=== PATIENT | female | born 1980 | race Caucasian/White ===

== ENCOUNTER 2016-03-15 07:58 | Day surgery (SDC) | payer OTHER ==
[2016-03-12 11:12] VITALS: BMI 29.2
[2016-03-15] MEDS ORDERED: PROMETHAZINE HCL 25 MG/1 ML VIAL IVPUSH PRN (08:45)
[2016-03-15] MEDS ORDERED: LACTATED RINGERS SOLUTION 1,000 ML IV SCH (08:45)
[2016-03-15] MEDS ORDERED: ONDANSETRON 4 MG/2 ML VIAL IVPUSH PRN (08:45)
[2016-03-15] MEDS ORDERED: MIDAZOLAM HCL 2 MG/2 ML SINGLE DOSE VIAL ONE (08:59)
[2016-03-15] MEDS ORDERED: PROPOFOL 20 ML ONE (08:59)
[2016-03-15] MEDS ORDERED: ROCURONIUM BROMIDE 50 MG/5 ML VIAL ONE (08:59)
--- NOTE | 2016-03-15 09:33 | HP ---
Past Medical History - Primary Care Physician PCP:: Augustine Weller - Admission Chief Complaint: Sterilization History of Present Illness: 35 yp [id number] admitted for laparoscopic BTL. 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: Alzheimer's, CVA, Dementia, Migraine, Multiple Sclerosis, Peripheral Neuropathy, Parkinson's, Seizure, Syncope, TIA, Vertigo, Other Cardiovascular: No: AFIB, Aneurysm, Aortic Insufficiency, Aortic Stenosis, CAD, CHF, Deep Vein Thrombosis, HTN, Hyperlipdemia, NC, Mitral Insufficiency, Mitral Stenosis, Murmur, Pulmonary Hypertension, Other Pulmonary: Yes: Asthma Gastrointestinal: No: Ascites, Cancer, Constipation, Crohn's Disease, Diverticulitis, Diverticulosis, Esophageal Varices, Gastritis, GERD, GI Bleed, Hemorrhoids, Hiatal Hernia, Inflamatory Bowel Disease, Irritable Bowel Disease, Pancreatitis, Peptic Ulcer Disease, Ulcerative Colitis, Other Hepatobiliary: No: Cirrhosis, Cholelithiasis, Cholecystitis, Choledocholithiasis , Hepatitis A, Hepatitis B, Hepatitis C, Other Renal/: No: Renal Failure, Renal Inusuff, BPH, Cancer, Hematuria, Hemodialysis , Neurogenic Bladder, Renal Calculi, UTI, Other ...: 4 ...Para: 3 ...Term: 3 ...Induced : 1 Heme/Onc: Yes: Anemia Infectious Disease: Yes: STD's (h/o PID, HPV) Psych: No: Addictions, Anxiety, Bipolar, Depression, Panic, Psychosis, Schizophrenia, Other Musculoskeletal: No: Bursitis, Chronic low back pain, Hemiparesis, Hemiplegia, Osteoarthritis, Paraplegia, Other Rheumatology: Yes: Fibromyalgia ENT: No: Allergic Rhinitis, Sinusitis, Other Endocrine: No: Gonzales's Disease, Kelby's Disease, Diabetes Insipidus, Diabetes Mellitus, Hyperparathyroidism, Hyperthyroidism, Hypothyroidism, Osteopenia, SIADH, Other Dermatology: No: Basal Cell, Cellulitis, Eczema, Melanoma, Psoriasis, Squamous Cell, Other - Past Surgical History Hx Myomectomy: No Hx Transabdominal Cerclage: No Additional Surgical History: Laparoscopic lysis of adhesions, LEEP - Smoking History Smoking history: Former smoker Have you smoked in the past 12 months: No If you are a former smoker, when did you quit?: 2007 - Alcohol/Substance Use Hx Alcohol Use: Yes (SOCIAL) History of Substance Use: reports: None - Social History ADL: Independent History of Recent Travel: No Home Medications - Allergies Allergies/Adverse Reactions: Allergies Allergy/AdvReac Type Severity Reaction Status Date / Time acetaminophen [From Tylenol] Allergy Severe Vomiting Verified 03/15/16 08:30 codeine [Codeine] Allergy Severe Itching Verified 03/15/16 08:30 oxycodone HCl [From Percocet] Allergy Severe Itching Verified 03/15/16 08:30 hydrocodone bitartrate AdvReac Verified 03/15/16 08:30 [From Vicodin] - Home Medications Home Medications: Ambulatory Orders Albuterol Sulfate Inhaler - [Ventolin HFA Inhaler -] 2 puff PO PRN PRN 08/26/15 Ibuprofen [Advil -] 400 mg PO PRN PRN 03/15/16 Family Disease History - Family Disease History Family History: Unremarkable Review of Systems Findings/Remarks: Well appearing - Review of Systems Constitutional: reports: No Symptoms Eyes: reports: No Symptoms HENT: reports: No Symptoms Neck: reports: No Symptoms Cardiovascular: reports: No Symptoms Respiratory: reports: No Symptoms Gastrointestinal: reports: No Symptoms Genitourinary: reports: No Symptoms Breasts: reports: No Symptoms Reported Musculoskeletal: reports: No Symptoms Integumentary: reports: No Symptoms Neurological: reports: No Symptoms Endocrine: reports: No Symptoms Hematology/Lymphatic: reports: No Symptoms Psychiatric: reports: No Symptoms Pain Intensity: 0 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 Vital Signs: Vital Signs Temperature 98.2 F 03/15/16 08:28 Pulse Rate 83 03/15/16 08:28 Respiratory Rate 20 03/12/16 11:07 Blood Pressure 113/71 03/15/16 08:28 O2 Sat by Pulse Oximetry (%) 98 03/15/16 08:28 Constitutional: Yes: Well Nourished, No Distress, Calm Eyes: Yes: WNL, Conjunctiva Clear HENT: Yes: WNL, Atraumatic, Normocephalic Neck: Yes: WNL, Supple, Trachea Midline Cardiovascular: Yes: WNL, Regular Rate and Rhythm Respiratory: Yes: WNL, Regular, CTA Bilaterally Gastrointestinal: Yes: WNL, Normal Bowel Sounds, Soft ...Rectal Exam: Yes: WNL Renal/: Yes: WNL Pelvis: Yes: WNL External Genitalia: Yes: Normal Internal Exam Deferred: No Vaginal Exam: Yes: Normal Cervix: Yes: Normal Uterus: Yes: Normal, Freely Moveable Musculoskeletal: Yes: WNL Extremities: Yes: WNL Edema: No Integumentary: Yes: WNL Neurological: Yes: WNL, Alert, Oriented ...Motor Strength: WNL Psychiatric: Yes: WNL, Alert, Oriented Assessment/Plan 35 yo P3 admitted for laparoscopic BTL. We had a long discussion about the risks , benefits, and alternatives of surgery. The risks of infection, bleeding, failed sterilization, pain, scarring, need for additional surgery, etc. explained. The pt verbalized her understanding.
[2016-03-15] MEDS ORDERED: ceFAZolin SODIUM 1 GM VIAL IVPB ONE (09:40)
[2016-03-15] MEDS ORDERED: BUPIVACAINE HCL/PF 0.5% (5MG/ML) 10 ML VIAL ONE (09:46)
[2016-03-15] MEDS ORDERED: BUPIVACAINE HCL/PF 0.5% (5MG/ML) 10 ML VIAL IJ ONE (10:15)
[2016-03-15] MEDS ORDERED: IBUPROFEN 600 MG TABLET (FP) PO PRN (10:59)
[2016-03-15 12:17] VITALS: TEMP 98.8
[2016-03-15] MEDS ORDERED: IBUPROFEN 600 MG TABLET (FP) PO ONE (13:51)
[2016-03-15 15:26] VITALS: BP 115/71; PULSE 69
--- NOTE | 2016-03-16 13:48 | OP ---
DATE OF OPERATION: 03/15/2016 PREOPERATIVE DIAGNOSIS: Sterilization. POSTOPERATIVE DIAGNOSIS: Sterilization. PROCEDURE: Laparoscopic bilateral tubal ligation via fulguration. SURGEON: Feroz Rosales MD REJECTOR: None. ANESTHESIOLOGIST: Bessie Edouard MD ANESTHESIA: General. COMPLICATIONS: None. ESTIMATED BLOOD LOSS: 3 mL. INTRAVENOUS FLUIDS: 1000 mL of crystalloids. URINE OUTPUT: 100 mL of clear fluid at the end of the procedure. FINDINGS: Normal uterus, fallopian tubes, and ovaries. Normal visualized fragments of small and large intestine. Normal liver, gallbladder, and stomach as visualized during laparoscopy. No pathology was noted. PROCEDURE: The patient was met preoperatively. Risks, benefits, and alternatives of surgery were discussed in detail. All questions were answered. The patient was then brought to the OR with IV running. She was placed on the surgical table in the supine position. The general anesthesia was achieved without difficulty. The patient was then placed in a dorsal lithotomy position using adjustable Valentin stirrups. She was examined under anesthesia. The uterus was noted to be anteverted. No pelvic or adnexal masses were noted. The patient was then prepped and draped in the usual sterile fashion. A Fisher catheter was inserted and left to drain to gravity. A Humi uterine manipulator was also inserted. The surgeon then regloved and proceeded with the laparoscopy. A 5-mm incision was made inside the umbilicus. A Veress needle was introduced without complications. Once the intraperitoneal placement was confirmed, pneumoperitoneum was produced with CO2 gas. The Veress needle was then removed and a 5-mm trocar was placed through the umbilical incision. Intraperitoneal placement was once again confirmed by direct visualization. A second 5-mm incision was placed above the pubic symphysis in the midline, and a second 5-mm trocar was introduced under direct visualization. The right fallopian tube was then located and followed to the fimbriated end. The midportion of the right fallopian tube was cauterized using bipolar cautery for the length of approximately 3 cm. Thorough cautery was assured. The attention was then turned to the left fallopian tube. It was also located and followed to the fimbriated end. The midportion of the left fallopian tube was also thoroughly cauterized for the length of approximately 3 cm. Once this was completed, good hemostasis was confirmed. A survey of the abdomen and pelvis was conducted and no pathology was found. The instruments were then removed from the patient. Pneumoperitoneum was reduced. The incisions were closed with a 3-0 Biosyn suture with good approximation and hemostasis. Sponge, lap, instrument counts were correct. The patient was transferred to recovery room awake and in stable condition. FEROZ ROSALES M.D. [id number]
== END 2016-03-15 15:26 | disposition home or self-care (01) ==
LOC: JASU-SURG 07:58
PROVIDERS: ATTEND Obstetrics & Gynecology
PROC: 0U574ZZ Destruction of Bilateral Fallopian Tubes, Percutaneous Endoscopic Approach (ICD-10-PCS; principal; 2016-03-15 09:00)
DX: Z30.2 Encounter for sterilization (principal)
CPT/HCPCS: 84703; 94760